=== PATIENT | male | born 1970 | race Caucasian/White ===

== ENCOUNTER 2018-08-20 12:43 | Emergency (ER) | payer BC, SELFPAY ==
[2018-08-20 12:49] VITALS: BP 152/87; PULSE 92; RESP 14; TEMP 37; O2SAT 97
--- NOTE | 2018-08-20 13:04 | W.ED.GENAD ---
Discharge Plan Disposition Patient Disposition: HOME Condition: Good Discharge Details Chief Complaint: Orthopedic Clinical Impression: Distal radius fracture, right Primary Care Provider: Carson Michael ED Provider: Eulalio Aguila Home Meds and New Rx's Prescriptions: New oxycodone-acetaminophen [Percocet] 5-325 mg tablet 1 tab PO .qhs PRN (Reason: wrist fx) Qty: 7 RF: 0 Discharge Instructions Instructions: Wrist Fracture in Adults (ED) Referrals: Christoph Macedo MD [ [facility]] - Marquis Keating MD [ [facility]] - Yadiel Ritter MD [ [facility]] - Discharge Data Discharge Date/Time-TO BE ENTERED AT DEPARTURE: 08/20/18 14:19 Medical Decision Making Plan to x-ray wrist with navicular view. Pt did drive and declines pain medication. Took ibuprofen [employer]. Nurse fitted with thumb [employer] commercial Velcro splint. I reviewed x-rays with him. Placed name on the orthopedic list for f/u. Prescribed seven percocet. We discussed risk versus benefits. He will take the script but only will fill if Ibuprofen not helpful. Advised to return if symptoms worsen. Imaging Data Radiologic Study: Imaging: X-Ray My impression: Comminuted distal radius fx intrarticular HPI General Mode of arrival: ambulatory. Date/Time Provider Initiated Documentation: 08/20/18 12:59. Limitations to Documentation: no limitations. Information obtained by: patient. History of Present Illness 48 year old M presents to the emergency department with the chief complaint of wrist pain, HPI Narrative: 48 y/o male here with c/o right wrist pain after fall. Four hours [employer] he slipped on the ice and broke his fall with his outstretched right hand/arm. thought maybe it was a sprain but the pain is worse and he notices a deformity with less ROM. He is right hand dominate. Related Data Home Medications Medication Instructions Recorded Confirmed oxycodone-acetaminophen [Percocet] 1 tab PO .qhs PRN #7 tab 08/20/18 Previous Rx's Medication Instructions Recorded oxycodone-acetaminophen [Percocet] 1 tab PO .qhs PRN #7 tab 08/20/18 Allergies Allergy/AdvReac Type Severity Reaction Status Date / Time No Known Allergies Allergy Unverified 08/20/18 12:53 General Stated Complaint: Orthopedic HAMIDA: 3 Review of Systems Musculoskeletal Comments: right wrist injury with pain and deformity. Neurologic Reports system reviewed and no additional complaints, except as docu PFSH Family History Mother Heart disease Social History Smoking/Tobacco Use Status: Never Exam Const General: cooperative, healthy appearing, uncomfortable (gaurding right wrist from the pain) and no acute distress Orientation: alert, awake and oriented x3 Eyes General: appearance normal, both eyes and all related structures Neck Neck: normal visual inspection and full ROM Extrem Right upper extremity: normal capillary refill, shoulder/upper arm Details: normal to inspection; no tenderness, elbow/forearm Details: normal to inspection and abnormal ROM Details: pain with active ROM during Details: with pronation and with supination; no tenderness and no swelling and wrist (Right) Details: abnormal to inspection Details: obvious deformity and joint swelling; no erythema, tenderness Location: of the distal radius, of the distal ulna, of the anatomic snuffbox, of the dorsal wrist and of the volar wrist, abnormal ROM Details: pain with active ROM during and pain with passive ROM during, deformity, normal vascular exam, radial pulse present and ulnar pulse present; no unusual warmth, no abrasions and no lacerations Psych Appearance: grossly normal Mental Status: mental status grossly normal Speech and Movement: speech and movement normal Mood: congruent mood Affect: normal affect Course Vital Signs Temperature 37.0 C 08/20/18 12:49 Pulse 92 H 08/20/18 12:49 Respiratory Rate 14 08/20/18 12:49 Blood Pressure 152/87 H 08/20/18 12:49 Pulse Oximetry 97 08/20/18 12:49 Temperature 37.0 C 08/20/18 12:49 Temperature Source Temporal Artery Scan 08/20/18 12:49 Pulse 92 H 08/20/18 12:49 Respiratory Rate 14 08/20/18 12:49 Respiratory Effort Non-Labored 08/20/18 12:51 Blood Pressure 152/87 H 08/20/18 12:49 Blood Pressure Position Sitting 08/20/18 12:49 Pulse Oximetry 97 08/20/18 12:49 Oxygen Delivery Method Room Air 08/20/18 12:49 Oxygen Flow Rate 0 08/20/18 12:49 Pain Level 4 08/20/18 12:52
--- NOTE | 2018-08-20 13:13 | ED.GENADUL_ITS ---
Discharge Plan Disposition Patient Disposition: HOME Condition: Good Discharge Details Chief Complaint: Orthopedic Clinical Impression: Distal radius fracture, right Primary Care Provider: Carson Michael ED Provider: Eulalio Aguila Home Meds and New Rx's Prescriptions: New oxycodone-acetaminophen [Percocet] 5-325 mg tablet 1 tab PO .qhs PRN (Reason: wrist fx) Qty: 7 RF: 0 Discharge Instructions Instructions: Wrist Fracture in Adults (ED) Referrals: Christoph Macedo MD [ [facility] STAFF PHYSICIAN] - Marquis Keating MD [ [facility] STAFF PHYSICIAN] - Yadiel Ritter MD [ [facility] STAFF PHYSICIAN] - Discharge Data Discharge Date/Time-TO BE ENTERED AT DEPARTURE: 08/20/18 14:19 Medical Decision Making Plan to x-ray wrist with navicular view. Pt did drive and declines pain medication. Took ibuprofen [employer]. Nurse fitted with thumb [employer] commercial Velcro splint. I reviewed x-rays with him. Placed name on the orthopedic list for f/u. Prescribed seven percocet. We discussed risk versus benefits. He will take the script but only will fill if Ibuprofen not helpful. Advised to return if symptoms worsen. Imaging Data Radiologic Study: Imaging: X-Ray My impression: Comminuted distal radius fx intrarticular HPI General Mode of arrival: ambulatory . Date/Time Provider Initiated Documentation: 08/20/18 12:59 . Limitations to Documentation: no limitations . Information obtained by: patient . History of Present Illness 48 year old M presents to the emergency department with the chief complaint of wrist pain, HPI Narrative: 48 y/o male here with c/o right wrist pain after fall. Four hours [employer] he slipped on the ice and broke his fall with his outstretched right hand/arm. thought maybe it was a sprain but the pain is worse and he notices a deformity with less ROM. He is right hand dominate. Related Data Home Medications Medication Instructions Recorded Confirmed oxycodone-acetaminophen [Percocet] 1 tab PO .qhs PRN #7 tab 08/20/18 Previous Rx's Medication Instructions Recorded oxycodone-acetaminophen [Percocet] 1 tab PO .qhs PRN #7 tab 08/20/18 Allergies Allergy/AdvReac Type Severity Reaction Status Date / Time No Known Allergies Allergy Unverified 08/20/18 12:53 General Stated Complaint: Orthopedic HAMIDA: 3 Review of Systems Musculoskeletal Comments: right wrist injury with pain and deformity. Neurologic Reports system reviewed and no additional complaints, except as docu PFSH Family History Mother Heart disease Social History Smoking/Tobacco Use Status: Never Exam Const General: cooperative, healthy appearing, uncomfortable (gaurding right wrist from the pain) and no acute distress Orientation: alert, awake and oriented x3 Eyes General: appearance normal, both eyes and all related structures Neck Neck: normal visual inspection and full ROM Extrem Right upper extremity: normal capillary refill, shoulder/upper arm Details: normal to inspection; no tenderness, elbow/forearm Details: normal to inspection and abnormal ROM Details: pain with active ROM during Details: with pronation and with supination; no tenderness and no swelling and wrist (Right) Details: abnormal to inspection Details: obvious deformity and joint swelling; no erythema, tenderness Location: of the distal radius, of the distal ulna, of the anatomic snuffbox, of the dorsal wrist and of the volar wrist, abnormal ROM Details: pain with active ROM during and pain with passive ROM during, deformity , normal vascular exam, radial pulse present and ulnar pulse present; no unusual warmth, no abrasions and no lacerations Psych Appearance: grossly normal Mental Status: mental status grossly normal Speech and Movement: speech and movement normal Mood: congruent mood Affect: normal affect Course Vital Signs Temperature 37.0 C 08/20/18 12:49 Pulse 92 H 08/20/18 12:49 Respiratory Rate 14 08/20/18 12:49 Blood Pressure 152/87 H 08/20/18 12:49 Pulse Oximetry 97 08/20/18 12:49 Temperature 37.0 C 08/20/18 12:49 Temperature Source Temporal Artery Scan 08/20/18 12:49 Pulse 92 H 08/20/18 12:49 Respiratory Rate 14 08/20/18 12:49 Respiratory Effort Non-Labored 08/20/18 12:51 Blood Pressure 152/87 H 08/20/18 12:49 Blood Pressure Position Sitting 08/20/18 12:49 Pulse Oximetry 97 08/20/18 12:49 Oxygen Delivery Method Room Air 08/20/18 12:49 Oxygen Flow Rate 0 08/20/18 12:49 Pain Level 4 08/20/18 12:52
--- NOTE | 2018-08-20 13:25 | DI.RAD_ITS ---
SYMPTOM/DIAGNOSIS: SLIPPED ON ICE, BROKE FALL WITH RIGHT HAND/WRIST RIGHT WRIST: Four views including navicular view were performed. There is a fracture extending transversely through the distal radial metaphysis with some impaction. There is comminution seen posteromedially with extension to the articular surface with a few mm of separation. The navicular and distal ulna appear intact. IMPRESSION: Comminuted intra-articular fracture of the distal radius.
--- NOTE | 2018-08-20 14:01 | DI.VRAD_ITS ---
EXAM: XR Right Wrist Complete, 3 or more Views EXAM DATE/TIME: 08/20/2018 1:04 PM CLINICAL HISTORY: 48 years old, male; Injury or trauma; Fall; Initial encounter; Blunt trauma (contusions or hematomas; Wrist; Right; Injury date: 08/20/18; Injury details: Slipped on ice, broke fall with right hand/wrist. TECHNIQUE: XR Right wrist 3 or more views. COMPARISON: No relevant prior studies available. FINDINGS: Bones/joints: There is a slightly comminuted minimally impacted distal radial fracture. There is involvement of the articular surface with mild comminution. The ulnar styloid is intact. Soft tissues: Normal. IMPRESSION: Slightly comminuted minimally impacted distal radial fracture with involvement of the articular surface. COMMENT: Preliminary interpretation is based on receipt of 4 image(s). A final report will be issued subsequently. Dictated and Authenticated by: Larisa Salazar MD. Ordering:FERNANDA CUETO MD
== END 2018-08-20 14:19 | disposition home or self-care (01) ==
PROVIDERS: Emergency Provider Nurse Practitioner Family; PCP Family Medicine
DX: S52.354A Nondisplaced comminuted fracture of shaft of radius, right arm, initial encounter for closed fracture (principal); W00.0XXA Fall on same level due to ice and snow, initial encounter
CPT/HCPCS: 25600; 73110; L3807

== ENCOUNTER 2018-08-29 09:13 | Outpatient (CLI) | payer BC, SELFPAY ==
--- NOTE | 2018-08-29 09:00 | DI.RAD_ITS ---
SYMPTOM/DIAGNOSIS: DISTAL RADIUS FX RIGHT WRIST: Three views. Comparison is made with 08/20/18. There is again seen a comminuted intra-articular fracture of the distal right radius. Again seen is mild separation of the fracture at the medial aspect. No new fractures or dislocation is seen. There is persistent soft tissue swelling about the wrist. IMPRESSION: Stable comminuted, intra-articular fracture of the distal right radius.
== END 2018-08-29 09:33 ==
PROVIDERS: PCP Family Medicine; Visit Provider Student in an Organized Health Care Education/Training Program
DX: S52.354D Nondisplaced comminuted fracture of shaft of radius, right arm, subsequent encounter for closed fracture with routine healing (principal)
CPT/HCPCS: 73110

== ENCOUNTER 2018-09-05 09:21 | Outpatient (CLI) | payer BC, SELFPAY ==
--- NOTE | 2018-09-05 08:52 | DI.RAD_ITS ---
SYMPTOM/DIAGNOSIS: F/U RT DISTAL RADIUS FRACTURE RIGHT WRIST: Comparison is made with 29 Aug 2018. There has been some interval healing of the previously noted intra-articular fracture of the distal radius. No new abnormalities are seen.
== END 2018-09-05 09:41 ==
PROVIDERS: PCP Family Medicine; Visit Provider Student in an Organized Health Care Education/Training Program
DX: S52.571D Other intraarticular fracture of lower end of right radius, subsequent encounter for closed fracture with routine healing (principal)
CPT/HCPCS: 73110

== ENCOUNTER 2018-10-03 09:00 | Outpatient (CLI) | payer BC, SELFPAY ==
--- NOTE | 2018-10-03 08:35 | DI.RAD_ITS ---
SYMPTOMS/DIAGNOSIS: F/U RT DISTAL RADIUS FRACTURE RIGHT WRIST: Three views. Comparison 09/05/18. There has been no change in alignment of the comminuted intra-articular fracture of the distal right radius. No new fractures or dislocations are present.
== END 2018-10-03 09:20 ==
PROVIDERS: PCP Family Medicine; Visit Provider Physician Assistant
DX: S52.571D Other intraarticular fracture of lower end of right radius, subsequent encounter for closed fracture with routine healing (principal)
CPT/HCPCS: 73110

== ENCOUNTER 2018-11-14 08:36 | Outpatient (CLI) | payer BC, SELFPAY ==
--- NOTE | 2018-11-14 08:32 | DI.RAD_ITS ---
SYMPTOM/DIAGNOSIS: F/U FX RIGHT WRIST: Three views. Comparison is made with 09/05/18. There has been continued healing of the distal right radial fracture. There may be mild persistence of the fracture line medially. No new fractures or dislocations are seen. The soft tissues are unremarkable. IMPRESSION: Near complete healing of the distal right radial fracture.
== END 2018-11-14 08:56 ==
PROVIDERS: PCP Family Medicine; Visit Provider Physician Assistant
DX: S52.571D Other intraarticular fracture of lower end of right radius, subsequent encounter for closed fracture with routine healing (principal)
CPT/HCPCS: 73110